=== PATIENT | male | born 1990 | race Two or more races ===

== ENCOUNTER → 2023-03-29 | Outpatient (CLI) | payer OTHER ==
--- NOTE | 2023-03-29 13:51 | DIREP ---
PROCEDURE:XRAY SINUSES PARANASAL<3 VWS COMPARISON:None. INDICATIONS:Z00.00 Encounter for general medical examination without abnormal findings TECHNIQUE: PA, Márquez, and lateral views of the sinuses are provided. FINDINGS: MAXILLARY:Normal. No mucosal thickening or fluid level. ETHMOID:Normal. No mucosal thickening or fluid level. FRONTAL:Normal. No mucosal thickening or fluid level. SPHENOID:Normal. No mucosal thickening or fluid level. OTHER:Negative. CONCLUSION:Normal examination. Dictated by: Florentino Plascencia M.D. on 03/29/2023 at 01:49 PM
== END | disposition home or self-care (01) ==
LOC: RAD 12:37
PROVIDERS: ATTEND Nurse Practitioner
DX: Z00.00 Encounter for general adult medical examination without abnormal findings (principal)
CPT/HCPCS: 70220